=== PATIENT | female | born 1995 | race African-American/Black ===

== ENCOUNTER 2017-01-27 12:28 | Emergency (ER) | payer BC, MEDICAID ==
[~2017-01-27 12:28] MED LIST: ACYC400T PO; METR-1 PO
[2017-01-27 12:32] VITALS: BP 134/82; PULSE 65; RESP 16; TEMP 98.4; O2SAT 99
[2017-01-27] MEDS ORDERED: BACT800T5 PO (13:48)
--- NOTE | 2017-01-27 13:48 | PD ---
HPI Chief Complaint: Skin Problem Time Seen by Provider: 12:47 Travel History International Travel<30 days: No Contact w/Intl Traveler<30days: No Traveled to known affect area: No History of Present Illness HPI 21-year-old female presents to department complaining of a infection to the right middle finger for 1 week. Patient states that she has been using Epsom salts soaks and has not improved. Patient states that the pain is moderate but is able to bend her finger normally. 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 Denies allergies or chronic medication use. PFSH Past Medical History Medical History: Denies Significant Hx Immunizations Current: Yes ?: Not : 1 Para: 1 Past Surgical History Surgical History: No Previous Surgery Social History Alcohol Use: Yes Tobacco Use: No Substance Use: No Allergies-Medications (Allergen,Severity, Reaction): Coded Allergies: No Known Allergies (Unverified , 09/30/16) Reported Meds & Prescriptions Reported Meds & Active Scripts Active Bactrim DS (Sulfamethoxazole-Trimethoprim) 800-160 Mg Tab 1 Tab PO BID Review of Systems Except as stated in HPI: all other systems reviewed are Neg Physical Exam Narrative GENERAL: Well-nourished, well-developed patient. SKIN: Focused skin assessment warm/dry. Right middle finger- distal aspect with area of fluctuance and TTP. Full range of motion with mild tenderness. No tenderness along the finger except for the area of fluctuance. HEAD: Normocephalic. EYES: No scleral icterus. No injection or drainage. NECK: Supple, trachea midline. No JVD MUSCULOSKELETAL: No cyanosis, or edema. BACK: Nontender without obvious deformity. No CVA tenderness. PSYCHIATRIC: Appropriate mood and affect, reasonable Data Data Last Documented VS Vital Signs Date Time Temp Pulse Resp B/P (MAP) Pulse Ox O2 Delivery O2 Flow Rate FiO2 01/27/17 12:32 98.4 65 16 134/82 (99) 99 Orders Orders Ed Discharge Order (01/27/17 13:49) [facility] Medical Decision Making Medical Screen Exam Complete: Yes Emergency Medical Condition: Yes Differential Diagnosis felon vs cellulitis vs paronychia Narrative Course 21-year-old female presents to department complaining of a infection to the right middle finger for 1 week. Patient states that she has been using Epsom salts soaks and has not improved. Patient states that the pain is moderate but is able to bend her finger normally. 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 Denies allergies or chronic medication use. Vital signs stable Physical exam consistent with felon without involvement of the flexor tendons or extension into the surrounding skin. Incision and drainage performed today. Patient to take antibiotics. Advised use extreme caution in her job as she works as a caregiver in an assisted-living facility. Advised on wound care. Advised follow-up with primary care physician within 2-3 days. Advised to return for worsening infectious process. Procedures Procedure Narrative INCISION AND DRAINAGE OF ABSCESS: The area was prepped and was sterilely draped. A digital block was performed of the right middle finger. A number 11 scalpel was used to make a 5 mm incision across the area of the abscess. The abscess was drained, complex loculations were broken down, and irrigated with normal saline. Sterile dressing applied. Patient advised to have packing removed in 1-2 days. Diagnosis Primary Impression: Felon of finger Referrals: Primary Care Physician Additional Instructions: You may remove the dressing in 24 hours. Change dressing daily. Avoid submersion until the wound begins to heal. Wound will continue to express fluid. Take antibiotics as prescribed. Follow-up with her primary care physician within 2-3 days. Follow-up emergency department if pain worsens or persists. Scripts Sulfamethoxazole-Trimethoprim (Bactrim DS) 800-160 Mg Tab 1 TAB PO BID for Infection, #14 TAB 0 Refills Prov: Ramsey Ontiveros MD 01/27/17 Disposition: 01 DISCHARGE HOME Condition: Stable Janay Wilcox Jan 27, 2017 13:48
== END 2017-01-27 14:04 | disposition home or self-care (01) ==
LOC: NEPK 12:28
DX: L03.011 Cellulitis of right finger (principal)
CPT/HCPCS: 10061; 99283